=== PATIENT | male | born 1945 | race Caucasian/White ===

== ENCOUNTER 2020-05-22 15:57 | Emergency (ER) | payer MEDICARE ==
[2020-05-22] MEDS ORDERED: Lidocaine 2% Jelly 5 ML TUBE ONE (16:41)
[2020-05-22 17:05] LABS: Bilirubin Negative (Negative); Blood, Urine Moderate (Negative); Clarity Clear (Clear); Glucose, Urine (Dipstick) 100 mg/dL (Negative); Ketone, Urine Negative (Negative); Leukocyte Negative (Negative); Nitrite Negative (Negative); Protein, Urine (Dipstick) Negative (Neg-Trace); Urobilinogen 0.2 mg/dL (Less than 2)
[2020-05-22 17:16] LABS: Specific Gravity, Urine 1.009 (1.002-1.036)
[2020-05-22 17:22] LABS: RBC/HPF 0-3 HPF (0-3); Squamous Epithelial 0-3 HPF (0-3); WBC/HPF None Seen HPF (0-3)
[2020-05-22 17:23] LABS: Bacteria/HPF Rare-Few HPF (None Seen)
[2020-05-22] MEDS ORDERED: Ciprofloxacin 500 MG TAB ONE (17:38)
== END 2020-05-22 17:50 | disposition home or self-care (01) ==
LOC: MADERS 15:57
DX: N40.1 Benign prostatic hyperplasia with lower urinary tract symptoms (principal); R33.8 Other retention of urine; K59.00 Constipation, unspecified; T50.905A Adverse effect of unspecified drugs, medicaments and biological substances, initial encounter
CPT/HCPCS: 51702; 81003; 81015

== ENCOUNTER 2020-05-28 23:10 | Emergency (ER) | payer MEDICARE ==
[2020-05-29 00:14] LABS: Bilirubin Negative (Negative); Blood, Urine Moderate (Negative); Clarity Clear (Clear); Glucose, Urine (Dipstick) Negative (Negative); Ketone, Urine Negative (Negative); Leukocyte Negative (Negative); Nitrite Negative (Negative); Protein, Urine (Dipstick) Negative (Neg-Trace); Urobilinogen 0.2 mg/dL (Less than 2)
[2020-05-29 00:15] LABS: Specific Gravity, Urine 1.025 (1.002-1.036)
[2020-05-29 00:19] LABS: Bacteria/HPF Rare-Few HPF (None Seen); RBC/HPF 0-3 HPF (0-3); Squamous Epithelial 0-3 HPF (0-3); WBC/HPF None Seen HPF (0-3)
== END 2020-05-29 01:42 | disposition home or self-care (01) ==
LOC: MADERS 23:10
DX: R33.9 Retention of urine, unspecified (principal); E11.9 Type 2 diabetes mellitus without complications; N40.0 Benign prostatic hyperplasia without lower urinary tract symptoms; I10 Essential (primary) hypertension; Z79.899 Other long term (current) drug therapy
CPT/HCPCS: 51702; 81003; 81015; 87086